=== PATIENT | male | born 1965 | race Caucasian/White ===

== ENCOUNTER → 2017-11-16 | Outpatient (CLI) | payer SELFPAY ==
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
== END ==
LOC: RAD 16:03
PROVIDERS: ATTEND Nurse Practitioner Community Health
DX: M99.73 Connective tissue and disc stenosis of intervertebral foramina of lumbar region (principal); M47.816 Spondylosis without myelopathy or radiculopathy, lumbar region
CPT/HCPCS: 72148

== ENCOUNTER 2019-05-05 01:18 | Emergency (ER) | payer SELFPAY ==
[~2019-05-05] VITALS: Ht 172.7 cm; Wt 84.0 kg
[2019-05-05] MEDS ORDERED: LACTATED RINGERS 1,000 ML IV ONE ×2 (01:25→04:45)
[2019-05-05] MEDS ORDERED: fentaNYL INJECTION 100 MCG/2 ML AMP IVP ONE ×5 (01:30→04:45)
[2019-05-05 01:38] LABS: BASOPHILS # (AUTO) 0.1 10^3/uL (0.0-0.1); BASOPHILS % (AUTO) 1 % (0-10); EOSINOPHILS # (AUTO) 0.1 10^3/uL (0.0-0.3); EOSINOPHILS % (AUTO) 1 % (0-10); HEMATOCRIT 38 % (40-54); HEMOGLOBIN 13.3 G/DL (13.3-17.7); LYMPHOCYTES % (AUTO) 30 % (12-44); MEAN CORPUSCULAR HEMOGLOBIN 32 PG (25-34); MEAN CORPUSCULAR HGB CONC 35 G/DL (32-36); MEAN CORPUSCULAR VOLUME 91 FL (80-99); MEAN PLATELET VOLUME 9.5 FL (7.4-10.4); MONOCYTES # (AUTO) 0.6 X 10^3 (0.0-1.0); MONOCYTES % (AUTO) 6 % (0-12); NEUTROPHILS # (AUTO) 6.3 X 10^3 (1.8-7.8); NEUTROPHILS % (AUTO) 62 % (42-75); PLATELET COUNT 418 10^3/uL (130-400); WHITE BLOOD COUNT 10.1 10^3/uL (4.3-11.0)
[2019-05-05] MEDS ORDERED: TETANUS,DIPTH,PERTUSS P/F (BOOSTRIX) 0.5 ML VIAL IM ONE (01:45)
[2019-05-05 02:04] LABS: ALANINE AMINOTRANSFERASE 27 U/L (0-55); ALBUMIN 4.5 GM/DL (3.2-4.5); ALKALINE PHOSPHATASE 60 U/L (40-136); BILIRUBIN,TOTAL 0.2 MG/DL (0.1-1.0); BUN/CREATININE RATIO 11; CALCIUM 8.8 MG/DL (8.5-10.1); CARBON DIOXIDE 18 MMOL/L (21-32); CHLORIDE 105 MMOL/L (98-107); CREATININE SERUM 1.15 MG/DL (0.60-1.30); GFR ESTIMATED > 60; GLUCOSE 111 MG/DL (70-105); POTASSIUM 3.8 MMOL/L (3.6-5.0); SODIUM 136 MMOL/L (135-145); TOTAL PROTEIN 6.9 GM/DL (6.4-8.2)
[2019-05-05] MEDS ORDERED: MIDAZOLAM 5 MG/5 ML (VERSED) VIAL ONE ×3 (03:12→03:23)
[2019-05-05 03:17] LABS: BILIRUBIN,URINE NEGATIVE (NEGATIVE); CLARITY,URINE CLEAR; COLOR,URINE YELLOW; GLUCOSE, URINE (UA) NEGATIVE (NEGATIVE); KETONES,URINE NEGATIVE (NEGATIVE); LEUKOCYTE ESTERASE ,URINE NEGATIVE (NEGATIVE); NITRITE,URINE NEGATIVE (NEGATIVE); PH,URINE 5 (5-9); PROTEIN,URINE 2+ (NEGATIVE)
[2019-05-05 03:26] LABS: RBC,URINE RARE /HPF
[2019-05-05 03:27] LABS: BACTERIA,URINE NEGATIVE /HPF; SQUAMOUS EPITHELIAL CELL,UR 0-2 /HPF
[2019-05-05 03:34] LABS: AMPHETAMINE SCREEN, URINE NEGATIVE (NEGATIVE); BARBITURATE SCREEN URINE NEGATIVE (NEGATIVE); BENZODIAZEPINES SCREEN URINE NEGATIVE (NEGATIVE); CANNABINOID SCREEN, URINE NEGATIVE (NEGATIVE); COCAINE SCREEN URINE NEGATIVE (NEGATIVE); METHADONE STAT NEGATIVE (NEGATIVE); METHAMPHETAMINE SCREEN URINE S NEGATIVE (NEGATIVE); OPIATE SCREEN URINE NEGATIVE (NEGATIVE); OXYCODONE STAT NEGATIVE (NEGATIVE); PROPOXYPHENE STAT NEGATIVE (NEGATIVE); TRICYCLIC ANTIDEPRESSANTS SCRE NEGATIVE (NEGATIVE)
[2019-05-05 04:22] LABS: ABG BASE EXCESS -2.5 MMOL/L (-2.5-2.5); ABG OXYGEN SATURATION 98 % (94-100); ABG PCO2 56 MMHG (35-45); ABG PO2 111 MMHG (79-93); ABG TCO2 25.8 MMOL/L (21.0-31.0)
[2019-05-05 04:23] LABS: ABG PH 7.25 (7.37-7.43); ALLENS TEST YES-POS; INSPIRED O2 100%; PATIENT TEMP 35.6; VENTILATOR NO
[2019-05-05] MEDS ORDERED: MIDAZOLAM 5 MG/5 ML (VERSED) VIAL IVP ONE ×2 (04:45)
[2019-05-05] MEDS ORDERED: MIDAZOLAM 2 MG/2 ML (VERSED) VIAL IVP ONE (04:45)
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
[2019-05-05] MEDS ORDERED: TRAM-42 PO (05:52)
[2019-05-05 06:00] VITALS: BP 112/70
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
== END 2019-05-05 06:04 | disposition home or self-care (01) ==
LOC: EDUNIT# 01:18 → ER 01:20
DX: S09.90XA Unspecified injury of head, initial encounter (principal); S02.92XA Unspecified fracture of facial bones, initial encounter for closed fracture; S02.2XXA Fracture of nasal bones, initial encounter for closed fracture; S43.005A Unspecified dislocation of left shoulder joint, initial encounter; S16.1XXA Strain of muscle, fascia and tendon at neck level, initial encounter; F10.129 Alcohol abuse with intoxication, unspecified; Y04.8XXA Assault by other bodily force, initial encounter; Y92.59 Other trade areas as the place of occurrence of the external cause
CPT/HCPCS: 36415; 70450; 70486; 71045; 72125; 73030; 73060; 80053; 80306; 80320; 81000; 82805; 85025; 90715; 93041

== ENCOUNTER 2021-06-18 05:33 | Outpatient (CLI) | payer OTHER ==
[~2021-06-18] VITALS: Ht 172.7 cm; Wt 84.0 kg
[~2021-06-18 05:33] MED LIST: TRAM-42 PO
[2021-06-18] MEDS ORDERED: PRAV40TA2 PO (12:55)
[2021-06-18] MEDS ORDERED: BACL20TA PO (12:55)
[2021-06-18] MEDS ORDERED: FLUO20CA42 PO (12:55)
[2021-06-18] MEDS ORDERED: HYDR-3820 PO (12:55)
[2021-06-18] MEDS ORDERED: CHLO4TAB36 PO (12:55)
== END 2021-06-18 14:31 | disposition home or self-care (01) ==
LOC: PREOP 05:33
PROVIDERS: ATTEND Surgery
DX: Z01.818 Encounter for other preprocedural examination (principal)

== ENCOUNTER 2021-06-25 06:09 | Day surgery (SDC) | payer OTHER ==
[2021-06-25] VITALS (9 sets, daily range): BP systolic 118–147; BP diastolic 73–107
[~2021-06-25] VITALS: Ht 172.7 cm; Wt 84.0 kg
[~2021-06-25 06:09] MED LIST changes: +BACL20TA PO; +CHLO4TAB36 PO; +FLUO20CA42 PO; +HYDR-3820 PO; +PRAV40TA2 PO
[2021-06-25] MEDS ORDERED: ceFAZolin INJECTION 1,000 MG VIAL IV ONE (06:15)
[2021-06-25] MEDS: LACTATED RINGERS 1,000 ML IV PRN ×3 (06:27→09:33)
[2021-06-25] MEDS ORDERED: ceFAZolin INJECTION 1,000 MG ONE (07:16)
[2021-06-25] MEDS ORDERED: LIDOCAINE/EPI 1%-1:100,000 (XYLOCAINE) 20ML ONE (07:23)
[2021-06-25] MEDS ORDERED: fentaNYL INJ 100 MCG/2 ML AMP ONE (07:57)
[2021-06-25] MEDS ORDERED: MIDAZOLAM 2 MG/2 ML (VERSED) VIAL ONE (07:57)
--- NOTE | 2021-06-25 07:58 | Progress Note-Pre Operative ---
Pre-Operative Progress Note H&P Reviewed The H&P was reviewed, patient examined and no changes noted. Date Seen by Provider: Jun 25, 2021 Time Seen by Provider: 07:49 Date H&P Reviewed: Jun 25, 2021 Time H&P Reviewed: 07:49 Pre-Operative Diagnosis: right inguinal hernia WASHINGTON SCHULTE DO Jun 25, 2021 07:58
[2021-06-25] MEDS ORDERED: ONDANSETRON 4 MG/2 ML (SDV) Z0FRAN ONE (08:45)
[2021-06-25] MEDS ORDERED: proPOfol 200 MG/20 ML (DIPRIVAN) VIAL IV ONE (08:45)
[2021-06-25] MEDS ORDERED: SEVOFLURANE (ULTANE) 15 ML INHAL SOLN ONE ×2 (08:45→08:46)
[2021-06-25] MEDS ORDERED: ROCURONIUM 50 MG/5 ML (ZEMURON) VIAL IV ONE (08:45)
[2021-06-25] MEDS ORDERED: LIDOCAINE PF 2% 5 ML (XYLOCAINE) VIAL ONE (08:45)
[2021-06-25] MEDS ORDERED: PHENYLEPHRINE 100 MCG/ML 10 ML (ANESTHESIA) SYR ONE (08:46)
--- NOTE | 2021-06-25 08:53 | Progress Note-Post Operative ---
Post-Operative Progess Note Surgeon (s)/Order Puller (s) Surgeon WASHINGTON SCHULTE DO Order Puller: Dr. Mendez to assist in retraction dissection and closure. Pre-Operative Diagnosis right inguinal hernia Post-Operative Diagnosis right inguinal hernia, cord lipoma Procedure & Operative Findings Date of Procedure 06/25/21 Procedure Performed/Findings PROCEDURE: Open right incarcerated inguinal hernia repair with mesh and excision cord lipoma COMPLICATIONS: None. INDICATIONS: The patient is a 56, male male with a inguinal hernia. He understands risks and benefits of procedure and wished to proceed with procedure. Consent was signed in the chart. DESCRIPTION OF PROCEDURE: The patient was taken to the operating suite, was prepped and draped in sterile fashion. Surgical pause was performed. Local anesthetic was infiltrated in the lower quadrant. Incision was made and cautery used to dissect down to the external oblique, which was then opened down through the external ring. The spermatic cord was then dissected around. A Hayden drain was placed around it and there was no direct defect present. Cord lipoma was present which was dissected off of the cord. An indirect hernia present with incarcerated fat. Hernia sac was dissected off and opened. The incarcerated fat was dissected free with blunt and cautery dissection. The hernia sac was then twisted and suture ligated. Using ProGrip mesh, this was secured at Irwin's ligament and then incorporated around the spermatic cord and placed under the external oblique. Hemostasis was achieved. The external oblique was then closed recreating the external ring and then the subcutaneous tissues were then reapproximated using 3-0 Vicryl and skin was then closed using 4-0 Monocryl in a subcuticular fashion. The abdomen was then washed and dried and Skin Affix was placed over the incision. The patient tolerated procedure well without any complications and taken to recovery room in stable condition. Anesthesia Type general Estimated Blood Loss Estimated blood loss (mL): minimal Specimens/Packing Specimens Removed hernia sac, cord lipoma WASHINGTON SCHULTE DO Jun 25, 2021 08:53
[2021-06-25] MEDS ORDERED: DOCU-143 PO (08:56)
[2021-06-25] MEDS ORDERED: TRAM50TA3 PO (08:56)
--- NOTE | 2021-06-25 08:58 | Discharge Inst-Simple/Standard ---
Discharge Inst-Standard Discharge Medications New, Converted or Re-Newed RX: Transmitted to Pharmacy Patient Instructions/Follow Up Plan of Care/Instructions/FU: 2-3 weeks Claudia Activity as Tolerated: No Discharge Diet: Regular Diet Other Inst to Patient Follow up Appt: Make appointment for 2-3 week. Instructions: No lifting greater than 10 pounds. No strenuous activity. May shower in 24 hours, no tub bath or soaking. Use incentive spirometer at home as directed. No Smoking Skin/Wound Care: You have special glue over your incision that will fall off on it's own. Symptoms to Report: Appetite Changes, Extremity Discoloration, Numbness/Tingling, Swelling Increas ed, Bleeding Excessive, Eyesight Changes, Pain Increased, Urine Color Change, Constipation(Persistent), Fever over 101 degree F, Pain/Pressure in chest, Urinating Difficulty, Cough Up/Vomit Blood, Heart Beat Irreg/Pounding, Pain/Pressure in jaw, Vaginal Bleeding Increase, Cramps in feet or legs, Lightheadedness, Pain/Pressure in shoulder, Diarrhea(Persistent), Memory Changes Suddenly, Questions/Concerns, Weight gain consecutive days, Dizziness/Fainting, Nausea/Vomiting, Shortness of Breath, Weight gain over 2 pounds If questions or concerns contact your physician Or seek help at emergency department. WASHINGTON SCHULTE DO Jun 25, 2021 08:58
[2021-06-25] MEDS ORDERED: morphine INJ 10 MG/ML 1ML (SYR OR VIAL) IVP ONE (09:00)
[2021-06-25] MEDS ORDERED: fentaNYL INJ 100 MCG/2 ML AMP IVP ONE (09:00)
[2021-06-25] MEDS ORDERED: ONDANSETRON 4 MG/2 ML (SDV) Z0FRAN IVP PRN (09:00)
[2021-06-25] MEDS ORDERED: MEPERIDINE (DEMEROL) INJ 50 MG/ML IVP ONE (09:00)
--- NOTE | 2021-06-25 09:00 | Anesthesia-General Post-Op ---
General Patient Condition Mental Status/LOC: Same as Preop Cardiovascular: Satisfactory Nausea/Vomiting: Absent Respiratory: Satisfactory Pain: Controlled Complications: Absent Post Op Complications Complications None Follow Up Care/Instructions Patient Instructions None needed. Anesthesia/Patient Condition Patient Condition Patient is doing well, no complaints, stable vital signs, no apparent adverse anesthesia problems. No complications reported per nursing. DL ARANDA CRNA Jun 25, 2021 09:00
== END 2021-06-25 11:03 | disposition home or self-care (01) ==
LOC: SDC 06:09
PROVIDERS: ATTEND Surgery
DX: K40.30 Unilateral inguinal hernia, with obstruction, without gangrene, not specified as recurrent (principal); D17.6 Benign lipomatous neoplasm of spermatic cord; G47.33 Obstructive sleep apnea (adult) (pediatric); F32.A Depression, unspecified; F41.9 Anxiety disorder, unspecified; K21.9 Gastro-esophageal reflux disease without esophagitis; I10 Essential (primary) hypertension; F17.210 Nicotine dependence, cigarettes, uncomplicated; Z79.899 Other long term (current) drug therapy
CPT/HCPCS: 49507; 87081; 88302; C1781